=== PATIENT | female | born 1985 | race Caucasian/White ===

== ENCOUNTER 2017-04-04 10:10 | Emergency (ER) | payer OTHER ==
[2017-04-04 10:17] VITALS: BP 145/97
--- NOTE | 2017-04-04 10:46 | ED Physician Documentation ---
PD HPI HEENT - Stated complaint Stated Complaint: LEFT FACE SWOLLEN - Chief complaint Chief Complaint: Heent - History obtained from History obtained from: Patient - History of Present Illness Timing - onset: How many days ago (2-3 days of left ear pain and now some adenopathy swelling left side of face and submandibular. No pain with chewing. No rash.) Timing - duration: Days Timing - details: Abrupt onset Location: Left ear. No: Throat Associated symptoms: Swollen nodes, Facial swelling. No: Fever, Headache Similar symptoms before: Has not had sx before Recently seen: Not recently seen Review of Systems Constitutional: reports: Myalgias. denies: Fever, Chills Ears: reports: Ear pain. denies: Loss of hearing, Drainage/discharge, Tinnitus/ ringing Nose: reports: Congestion, Sinus pressure / pain Throat: denies: Sore throat Cardiac: denies: Chest pain / pressure Respiratory: denies: Cough Skin: denies: Rash, Lesions PD PAST MEDICAL HISTORY - Past Medical History Past Medical History: No Endocrine/Autoimmune: None HEENT: None - Past Surgical History Past Surgical History: Yes - Present Medications Home Medications: Ambulatory Orders Medication Instructions Recorded Confirmed Amoxicillin 500 mg PO TID #20 capsule 04/04/17 Dexamethasone [Decadron] 4 mg PO DAILY #5 tablet 04/04/17 HYDROcod/ACETAM 5/325 [[place] 5/325] 1 tab PO Q6H PRN #15 tablet 04/04/17 - Allergies Allergies/Adverse Reactions: Allergies Allergy/AdvReac Type Severity Reaction Status Date / Time No Known Drug Allergies Allergy Verified 04/04/17 10:17 - Social History Does the pt smoke?: No Smoking Status: Never smoker Does the pt drink ETOH?: Yes ETOH Use: Wine, Beer, Liquor Does the pt have substance abuse?: No - Immunizations Immunizations are current?: Yes - POLST Patient has POLST: No PD ED PE NORMAL - Vitals Vital signs reviewed: Yes - General General: Alert and oriented X 3, No acute distress, Well developed/nourished - HEENT HEENT: Pharynx benign, Other (no TMJ pain). No: Ears normal (right is okay. left with some redness and swelling of TM but not as much as I would expect for the pain. ) - Neck Neck: Supple, no meningeal sign, Other (anterior adenopathy left submandibular and preauricular. ) - Cardiac Cardiac: RRR, No murmur - Respiratory Respiratory: Clear bilaterally - Derm Derm: Normal color, Warm and dry, No rash Results - Vitals Vitals: Oxygen O2 Source Room air PD MEDICAL DECISION MAKING - ED course Complexity details: considered differential (some adenpathy left side. Ear is hurting and some red/swelling. No other obvious cause right now. Skin not hypersensitive. No TMJ pain.), d/w patient Departure - Departure Disposition: 01 Home, Self Care Clinical Impression: Otitis media Qualifiers: Otitis media type: suppurative Chronicity: acute Laterality: left Recurrence: not specified as recurrent Spontaneous tympanic membrane rupture: without spontaneous rupture Qualified Code(s): H66.002 - Acute suppurative otitis media without spontaneous rupture of ear drum, left ear Condition: Stable Record reviewed to determine appropriate education?: Yes Instructions: ED Otitis Media Acute Adult Prescriptions: Amoxicillin 500 mg PO TID #20 capsule Dexamethasone [Decadron] 4 mg PO DAILY #5 tablet HYDROcod/ACETAM 5/325 [[place] 5/325] 1 tab PO Q6H PRN #15 tablet PRN Reason: Pain Comments: Drink lots of fluids. Use ibuprofen or Tylenol if needed for mild pains. Add hydrocodone for worse pain. Decadron daily for 5 more days for inflammation. Amoxicillin as directed for the infection. Recheck if not improving over the next several days. Discharge Date/Time: 04/04/17 11:26
[2017-04-04] MEDS ORDERED: AMOXICILLIN 250 MG CAPSULE PO STA (10:58)
[2017-04-04] MEDS ORDERED: DEXAMETHASONE 10 MG/ML VIAL PO STA (10:58)
[2017-04-04] MEDS ORDERED: HYDROcod/ACETAM 5/325 MG TABLET PO STA (10:58)
[2017-04-04] MEDS ORDERED: IBUPROFEN 600 MG TABLET PO STA (10:59)
== END 2017-04-04 11:26 | disposition home or self-care (01) ==
LOC: ED 10:10
DX: H66.002 Acute suppurative otitis media without spontaneous rupture of ear drum, left ear (principal)
CPT/HCPCS: 99283; A9270

== ENCOUNTER 2020-04-19 13:38 | Emergency (ER) | payer OTHER ==
[2020-04-19] MEDS ORDERED: IBUPROFEN 600 MG TABLET PO STA (15:30)
[2020-04-19] MEDS ORDERED: AMOX/CLAV 875 MG/125 MG TABLET PO STA (15:30)
--- NOTE | 2020-04-19 15:42 | ED Physician Documentation ---
History of Present Illness - Stated complaint Stated Complaint: R EAR PX - Chief complaint Chief Complaint: Heent - Additonal information Additional information: 34-year-old female presents to the emergency department with acute right ear rachana n. She reports to me a history of recurrent right inner ear infections for which she recently had a tympanostomy tube placed about 2 months ago in the right ear. She was required to partake in pool exercises for the [employer] 2 days ago and developed sudden onset dizziness pain and nausea after the pool exercises. She did see [facility] and was prescribed ofloxacin drops but does not feel that they have helped. No fevers. Review of Systems Constitutional: denies: Fever, Chills Eyes: reports: Reviewed and negative Ears: reports: Ear pain. denies: Drainage/discharge, Tinnitus/ringing Nose: reports: Reviewed and negative Throat: reports: Reviewed and negative Cardiac: reports: Reviewed and negative Respiratory: reports: Reviewed and negative GI: reports: Reviewed and negative : reports: Reviewed and negative PD PAST MEDICAL HISTORY - Past Medical History Past Medical History: Yes Cardiovascular: None Respiratory: None Neuro: None Endocrine/Autoimmune: None GI: None SALES ACCOUNT REPRESENTATIVE: None : None HEENT: None Psych: None Musculoskeletal: None Derm: None - Past Surgical History Past Surgical History: Yes - Present Medications Home Medications: Ambulatory Orders Medication Instructions Recorded Confirmed Amox/Clav 875/125 [Augmentin] 1 each PO Q12H #20 tablet 04/19/20 Ibuprofen [Motrin] 600 mg PO Q6H PRN #30 tab 04/19/20 - Allergies Allergies/Adverse Reactions: Allergies Allergy/AdvReac Type Severity Reaction Status Date / Time No Known Drug Allergies Allergy Verified 04/19/20 13:47 - Social History Does the pt smoke?: No Smoking Status: Never smoker Does the pt drink ETOH?: Yes Does the pt have substance abuse?: No - Immunizations Immunizations are current?: Yes - POLST Patient has POLST: No PD ED PE EXPANDED - General General: Alert, No acute distress, Well developed/nourished - HEENT HEENT: Atraumatic, PERRL, Moist mucous membranes, Pharynx normal. No: Ears normal (Right EAC erythematous. Tympanostomy tube noted. Right TM markedly erythematous with effusion. Left ear exam unremarkable) - Neck Neck: Supple w/out meningeal sx. No: Adenopathy Results - Vitals Vitals: Vital Signs - 24 hr 04/19/20 13:48 Temperature 36.3 C L Heart Rate 81 Respiratory 16 Rate Blood Pressure 142/80 H O2 Saturation 99 Oxygen O2 Source Room air PD MEDICAL DECISION MAKING - ED course Complexity details: reviewed results, re-evaluated patient, considered differential, d/w patient ED course: 34-year-old female presents the emergency department for evaluation of acute right ear pain. This is in the setting of a recent tympanostomy tube placement and the requirement of pool exercises for the [employer]. She was prescribed of loxacin drops but they have not helped the pain. On exam she has an erythematous TM with effusion. Tympanostomy tube is in place without drainage. Given failure of infection to improve with the ofloxacin drops I will initiate oral antibiotics. Emergent return precautions discussed for concerns of increased pain fevers or drainage from the ear Departure - Departure Disposition: 01 Home, Self Care Clinical Impression: Right otitis media with effusion Condition: Stable Record reviewed to determine appropriate education?: Yes Instructions: ED Otitis Media Serous Wo Inf Ch Prescriptions: Amox/Clav 875/125 [Augmentin] 1 each PO Q12H #20 tablet Ibuprofen [Motrin] 600 mg PO Q6H PRN #30 tab PRN Reason: Pain Comments: Clare as we discussed you now have an inner ear infection. Please fill the prescription for the Augmentin and begin taking twice daily as prescribed. Avoid any future water exercises with the [employer] until fully healed. It is common to have dizziness and nausea with inner ear infections. Please take the ibuprofen for pain. Return here if you have ear swelling, fevers or milky drainage from your ear. Follow-up with [facility] and 10 to 14 days to ensure that the infection in your ear has fully resolved once you finish the antibiotics
[2020-04-19 15:49] VITALS: BP 130/74
== END 2020-04-19 15:53 | disposition home or self-care (01) ==
LOC: ED 13:38
DX: H65.91 Unspecified nonsuppurative otitis media, right ear (principal)
CPT/HCPCS: 99282; 99283; A9270